=== PATIENT | female | born 1940 | race Caucasian/White ===

== ENCOUNTER 2023-08-13 11:24 | Emergency (ER) | payer MEDICARE, BC, SELFPAY ==
[2023-08-13 11:30] VITALS: BP 160/74; PULSE 87; RESP 16; TEMP 36.1; O2SAT 97; BMI 31.8
[2023-08-13 13:45] VITALS: BP 127/79; PULSE 80; RESP 16; O2SAT 98
--- NOTE | 2023-08-13 14:24 | ED_ITS ---
HPI - General Adult General Chief complaint: Abdominal Pain Stated complaint: abdominal pain Time Seen by Provider: 08/13/23 11:31 History of Present Illness HPI narrative: Pt reports being constipated for several days, but states this is not unusual for her. Pt is concerned of a bowel obstruction; has not had an obstruction in the past as far as she knows. Pt denies pain, states she feels a heaviness in her abdomen. Pt does have dementia dx as well per her daughter. Pt was seen at today and sent here from 83-year-old woman presenting to the emergency department with concern of constipation possible bowel obstruction. Was apparently assessed at urgent care earlier today and directed here. Does struggle with dementia she says apologetic leave. Her daughter was here but had to after prolonged wait in the waiting room go Fetch the kids. She is not complaining of significant abdominal pain but described as a ?heaviness? then she gestures to the right side mid abdomen. Says she woke in the middle of the night realizing that she had not gone to the bathroom in a while. She does not recall her last bowel movement no other quality. Does not think she is passing any gas. Is not been having nausea or vomiting. No dysuria. No fevers. Related Data Home Medications Medication Instructions Recorded Confirmed cholecalciferol (vitamin D3) PO 08/13/23 08/13/23 cyanocobalamin (vitamin B-12) PO 08/13/23 08/13/23 memantine 10 mg tablet 10 mg PO BID 08/13/23 08/13/23 pantoprazole 20 mg tablet,delayed 20 mg PO DAILY 08/13/23 08/13/23 release paroxetine HCl 30 mg tablet 30 mg PO DAILY 08/13/23 08/13/23 simvastatin 20 mg tablet 20 mg PO QPM 08/13/23 08/13/23 Allergies Allergy/AdvReac Type Severity Reaction Status Date / Time No Known Drug Allergies Allergy Verified 08/13/23 10:55 Review of Systems Status of ROS: Reports: 6 or more systems reviewed and unremarkable except as noted in History and below (Uncertain recall due to dementia) [facility] Social History Smoking Status: Unknown if ever smoked Do you use any of these nicotine containing products: None How often do you have a drink containing alcohol: never How often do you have six or more drinks on one occasion: Never AUDIT-C Alcohol total score: 0 Non-prescribed substance use: denies use Exam Narrative: Exam Narrative: Pleasant. NAD. Breathing easily. Lungs appear to be clear. Heart in regular rate rhythm though with some ectopic beats. Abdomen with present bowel sounds is diffusely soft and ticklish in the right upper abdomen. Transiently I thought I could reproduce some epigastric pain. Otherwise seems nontender. No peritoneal signs. No masses. Generally full, protuberant. Lower extremities are with trace dependent edema. She is well-perfused peripherally Const: Vital Signs, click to edit/add: Vital Signs - 24 hr 08/13/23 11:30 08/13/23 13:45 08/13/23 16:00 Temperature 97.0 F L Pulse Rate [Pulse Oximeter] 87 80 71 Respiratory Rate 16 16 20 Blood Pressure [Ri ght Upper Arm] 160/74 H 127/79 148/83 H Pulse Oximetry 97 98 97 Oxygen Delivery Me thod Room Air Room Air Room Air Documenting provider has reviewed patient's vital signs: yes Course Vital Signs Vital signs: Initial Vital Signs Temperature 97.0 F L 08/13/23 11:30 Temperature Source Temporal Artery Scan 08/13/23 11:30 Pulse Rate 87 08/13/23 11:30 Respiratory Rate 16 08/13/23 11:30 Blood Pressure 160/74 H 08/13/23 11:30 Blood Pressure Mean 102 08/13/23 11:30 Blood Pressure Position Sitting 08/13/23 11:30 Pulse Oximetry 97 08/13/23 11:30 Oxygen Delivery Method Room Air 08/13/23 11:30 Vital Signs Temperature 97.0 F L 08/13/23 11:30 Pulse Rate 87 08/13/23 11:30 Respiratory Rate 16 08/13/23 11:30 Blood Pressure 160/74 H 08/13/23 11:30 Pulse Oximetry 97 08/13/23 11:30 Oxygen Delivery Method Room Air 08/13/23 11:30 Temperature 97.0 F L 08/13/23 11:30 Pulse Rate 71 08/13/23 16:00 Respiratory Rate 20 08/13/23 16:00 Blood Pressure 148/83 H 08/13/23 16:00 Pulse Oximetry 97 08/13/23 16:00 Oxygen Delivery Method Room Air 08/13/23 16:00 Medical Decision Making MDM Narrative Medical decision making narrative: Abdominal exam seems relatively benign. At this point would assess with abdominal x-ray and urinalysis. Would not doubt that there is constipation. Less likely obstruction. Urinary tract infection? Pain does not seem to be consistent with gallbladder disease or even heartburn. No evidence of hernia outwardly. Further information might be obtained from daughter when she arrives. It sounds as though suppository was tried at some point. Abdominal x-ray reviewed by me looks to show well-formed stool with stool throughout the colon. I think this is consistent with constipation. No evidence of obstruction; no air-fluid levels. Degenerative changes otherwise. Urinalysis with some hematuria but otherwise no remarkable evidence of infection. Urine culture I suspect will be done. This so but seems to indicate that she has had hematuria before though I think actually referring to some degree of chronic kidney disease. On reassessment overall feels improved over time in the emergency department. No interventions were necessary. Discussed concerns and plan with daughter and Ms. Benavides See patient discharge plan Lab Data Lab results reviewed: Yes I reviewed the patient's lab results Labs: Lab Results 08/13/23 Range/Units 14:50 Urine Color Yellow (Yellow) Urine Appearance Clear (Clear) Urine pH 7.0 (5.0-8.5) Ur Specific [place] 1.020 (1.000-1.030) Urine Protein Negative (Negative) Urine Glucose (UA) Negative (Negative) Urine Ketones 1+ A (Negative) Urine Blood 2+ A (Negative) Urine Nitrite Negative (Negative) Urine Bilirubin Negative (Negative) Urine Urobilinogen 0.2 (0.2-1.0) Ur Leukocyte Esterase Trace A (Negative) Urine RBC 10-25 A (0-2) Urine WBC 2-5 (0-5) Ur Squamous Epith Cells None (None-Few) Urine Bacteria None (None) Discharge Plan Discharge Clinical Impression: Abdominal discomfort, Constipation, Hematuria Patient Disposition: Home w/ Parent or Adult Condition: Improved Additional Instructions: Focus on hydration. If having frankly hard stools particularly those that you might have to strain for, would consider placing an enema and repeating in an hour if no good result. Can also place a suppository overnight. Otherwise it sounds like it would be a good idea to begin MiraLax equivalent dosing up to 3 doses daily in adjusting to stool consistency over the next week or 2. For more aggressive a bowel cleanout can take magnesium citrate, 1/2-1 bottle and repeating the dose next day if still necessary. Return otherwise for marked increase in persistent abdominal pain, repeated vomiting, fever. I realize you have a follow-up tomorrow in primary care clinic. Would consider rechecking your urine in a week or 2 for the blood that was noticed here today. Otherwise does not appear to be infectious process. I do not see evidence of a bowel obstruction here today. Prescriptions: No Action pantoprazole 20 mg tablet,delayed release (DR/EC) 20 mg PO DAILY simvastatin 20 mg tablet 20 mg PO QPM paroxetine HCl 30 mg tablet 30 mg PO DAILY memantine 10 mg tablet 10 mg PO BID cholecalciferol (vitamin D3) PO cyanocobalamin (vitamin B-12) PO Follow Up/Referrals: Provider,Not a Local [Referring] - Stand Alone Forms: [facility] Info Instructions
--- NOTE | 2023-08-13 14:33 | XR_ITS ---
Final Report Patient: DERICK GUPTA Facility:?[facility] Patient ID:?[id number] Site Patient [id number]:?[id number]. Site :?[id number] Study:?XRay Abdomen -08/13/2023 3:26:54 PM Ordering Physician:ELOY DUPREE Final Report: INDICATION: Abdominal pain TECHNIQUE: Abdominal radiographs, 2 views. COMPARISON: None. FINDINGS: Lower chest: Unremarkable. Bowel: No bowel obstruction. Unremarkable bowel gas pattern. Moderate colonic stool burden, correlate for constipation. Soft tissues: Surgical clips in the right upper quadrant. Tiny pelvic phleboliths otherwise, unremarkable. Bones: No acute osseous abnormalities. Mild degenerative changes of the lumbar spine. IMPRESSION: No bowel obstruction. Unremarkable abdominal radiographs Dictated by James Frias MD @ 08/14/2023 2:35:18 AM (Electronic Signature)
[2023-08-13 14:57] LABS: Appearance Urine Clear (Clear); Bilirubin Urine Negative (Negative); Blood Urine 2+ (Negative); Color Urine Yellow (Yellow); Glucose Urine Negative (Negative); Ketones Urine 1+ (Negative); Leukocyte Esterase Urine Trace (Negative); Nitrite Urine Negative (Negative); Protein Urine Negative (Negative); Urobilinogen Urine 0.2 (0.2-1.0)
[2023-08-13 16:00] VITALS: BP 148/83; PULSE 71; RESP 20; O2SAT 97
== END 2023-08-13 16:52 | disposition home or self-care (01) ==
PROVIDERS: Emergency Provider Family Medicine; PCP Family Medicine
DX: K59.00 Constipation, unspecified (principal); R31.9 Hematuria, unspecified
CPT/HCPCS: 51798; 74019; 81001; 87086; 99284